=== PATIENT | female | born 1960 | race Caucasian/White ===

== ENCOUNTER 2024-11-22 10:05 | Inpatient (IN) | payer MEDICARE, OTHER ==
[~2024-11-22] VITALS: Ht 172.7 cm; Wt 59.0 kg
[2024-11-22 11:03] LABS: BASOPHILS # (AUTO) 0.1 K/UL (0.0-0.2); CALCIUM 9.8 mg/dL (8.5-10.1); CARBON DIOXIDE 30 mmol/L (21-32); CHLORIDE 103 mmol/L (98-107); CREATININE 0.7 mg/dL (0.6-1.3); EOSINOPHILS # (AUTO) 0.1 K/uL (0.0-0.7); EOSINOPHILS % (AUTO) 1.6 % (0.0-7.0); GLUCOSE 111 mg/dL (74-106); HEMATOCRIT 47.1 % (31.2-41.9); LYMPHOCYTES # (AUTO) 1.4 K/uL (0.8-4.8); LYMPHOCYTES % (AUTO) 22.5 % (20.5-51.5); MEAN CORPUSCULAR HEMOGLOBIN 33.7 uug (24.7-32.8); MEAN CORPUSCULAR HGB CONC 34 g/dL (32.3-35.6); MONOCYTES # (AUTO) 0.7 K/uL (0.1-1.30); MONOCYTES % (AUTO) 10.9 % (0.0-11.0); NEUTROPHILS # (AUTO) 3.9 K/uL (1.8-8.9); PLATELET COUNT (AUTO) 225 K/uL (179-408); POTASSIUM 3.8 mmol/L (3.5-5.1); RED BLOOD CELL COUNT(AUTO) 4.76 MIL/uL (3.63-4.92); RED CELL DISTRIBUTION WIDTH 13.5 % (12.3-17.7); SODIUM SERUM 142 mmol/L (136-145); UREA NITROGEN, BLOOD 10 mg/dL (7-18); WHITE BLOOD COUNT (AUTO) 6.1 K/uL (3.8-11.8)
[2024-11-22 11:16] LABS: ALANINE AMINOTRANSFERASE 10 U/L (14-59); ALBUMIN 3.8 g/dL (3.4-5.0); ALKALINE PHOSPHATASE 96 U/L (50-136); ASPARTATE AMINOTRANSFERASE 19 U/L (15-37); BILIRUBIN,DIRECT 0.1 mg/dL (0.0-0.2); BILIRUBIN,TOTAL 0.8 mg/dL (0.2-1.0); NT-PRO BNP 2463 pg/mL (0-125); TOTAL PROTEIN, SERUM 7.5 g/dL (6.4-8.2)
[2024-11-22 11:47] LABS: THYROID STIMULATING HORMONE 10.717 mIU/mL (0.358-3.740)
[2024-11-22] MEDS ORDERED: ASPIRIN 81 MG TAB.CHEW ONE (12:12)
[2024-11-22] MEDS: ASPIRIN 81 MG TAB.CHEW PO ONE (12:15)
[2024-11-22 12:30] LABS: BILIRUBIN,TOTAL 0.7 mg/dL (0.2-1.0)
[2024-11-22 12:31] LABS: ALBUMIN 3.8 g/dL (3.4-5.0); BILIRUBIN,DIRECT 0.1 mg/dL (0.0-0.2); TOTAL PROTEIN, SERUM 7.5 g/dL (6.4-8.2)
[2024-11-22] MEDS ORDERED: METR45GE6 TP (15:31)
[2024-11-22] MEDS ORDERED: ALBU0.63 NEB (15:31)
[2024-11-22] MEDS ORDERED: ESTR42.53 VG (15:31)
[2024-11-22 16:18] VITALS: BP 154/75; TEMP 97.5; O2SAT 97
[2024-11-22] MEDS ORDERED: ONDANSETRON 4 MG/2 ML VIAL IV PRN (16:30)
[2024-11-22] MEDS ORDERED: MAGNESIUM HYDROXIDE 30 ML LIQUID UDC PO PRN (16:30)
[2024-11-22] MEDS ORDERED: ALBUTEROL SULFATE 2.5 MG/3 ML NEBU NEB PRN (16:30)
[2024-11-22] MEDS: ENOXAPARIN SODIUM 40 MG/0.4 ML DISP.SYRIN SQ SCH (17:11)
[2024-11-22 18:05] VITALS: BP 147/75; TEMP 97.5; O2SAT 97
[2024-11-22 19:46] VITALS: BP 153/78; TEMP 97.9; O2SAT 96
[2024-11-22] MEDS: ATORVASTATIN 40 MG TABLET PO SCH (20:04)
[2024-11-22] MEDS: DOCUSATE SODIUM 250 MG CAPSULE PO SCH (20:06)
[2024-11-22] MEDS: TEMAZEPAM 15 MG CAPSULE PO PRN (21:37)
[2024-11-23] VITALS: BP 106/57; TEMP 98; O2SAT 96
[2024-11-23 05:16] VITALS: BP 116/47; TEMP 97.3; O2SAT 98
[2024-11-23] MEDS: PANTOPRAZOLE SODIUM 40 MG TABLET.DR PO SCH (06:06)
[2024-11-23 06:50] LABS: BASOPHILS # (AUTO) 0.1 K/UL (0.0-0.2); BASOPHILS % (AUTO) 1.2 % (0.0-2.0); EOSINOPHILS # (AUTO) 0.1 K/uL (0.0-0.7); EOSINOPHILS % (AUTO) 2.1 % (0.0-7.0); HEMATOCRIT 50.8 % (31.2-41.9); HEMOGLOBIN 17.5 g/dL (10.9-14.3); LYMPHOCYTES # (AUTO) 1.5 K/uL (0.8-4.8); LYMPHOCYTES % (AUTO) 24.7 % (20.5-51.5); MEAN CORPUSCULAR HEMOGLOBIN 33.9 uug (24.7-32.8); MEAN CORPUSCULAR HGB CONC 34 g/dL (32.3-35.6); MEAN CORPUSCULAR VOLUME 98.4 fL (75.5-95.3); MONOCYTES # (AUTO) 0.7 K/uL (0.1-1.30); MONOCYTES % (AUTO) 11.5 % (0.0-11.0); NEUTROPHILS # (AUTO) 3.7 K/uL (1.8-8.9); NEUTROPHILS % (AUTO) 60.5 % (38.5-71.5); PLATELET COUNT (AUTO) 251 K/uL (179-408); RED BLOOD CELL COUNT(AUTO) 5.16 MIL/uL (3.63-4.92); RED CELL DISTRIBUTION WIDTH 13.6 % (12.3-17.7); WHITE BLOOD COUNT (AUTO) 6.1 K/uL (3.8-11.8)
[2024-11-23 07:04] LABS: ALBUMIN 3.6 g/dL (3.4-5.0); CALCIUM 9.5 mg/dL (8.5-10.1); CREATININE 0.7 mg/dL (0.6-1.3); MAGNESIUM 2.4 mg/dL (1.8-2.4); PHOSPHOROUS 4.4 mg/dL (2.5-4.9); POTASSIUM 3.6 mmol/L (3.5-5.1); TOTAL PROTEIN, SERUM 7.4 g/dL (6.4-8.2)
[2024-11-23 07:09] LABS: DIFFERENTIAL COMMENT 1
[2024-11-23 07:21] VITALS: BP 156/85; TEMP 98.1; O2SAT 98
[2024-11-23] MEDS: ASPIRIN EC 81 MG TABLET.DR PO SCH (08:57)
[2024-11-23] MEDS: CYANOCOBALAMIN 1000 MCG/ML VIAL IM SCH (08:58)
[2024-11-23] MEDS: ENOXAPARIN SODIUM 60 MG/0.6 ML DISP.SYRIN SQ SCH (08:58)
[2024-11-23 11:04] VITALS: BP 138/72; TEMP 97.6; O2SAT 98
[2024-11-23 15:29] VITALS: BP 119/70; TEMP 98; O2SAT 96
[2024-11-23] MEDS: ACETAMINOPHEN 325 MG TABLET PO PRN (16:43)
[2024-11-23] MEDS ORDERED: ACET325T53 PO (17:21)
[2024-11-23] MEDS ORDERED: ATOR40TA PO (17:21)
[2024-11-23] MEDS ORDERED: ALBU2.5V7 NEB (17:21)
[2024-11-23] MEDS ORDERED: DOCU-141 PO (17:21)
[2024-11-23] MEDS ORDERED: ASPI-618 PO (17:21)
[2024-11-23] MEDS ORDERED: PANT40TA49 PO (17:21)
[2024-11-23] MEDS ORDERED: CYAN10006 IM (17:21)
[2024-11-23] MEDS ORDERED: ENOX60DI SQ (17:21)
[2024-11-23] MEDS ORDERED: TEMA15CA PO (17:21)
[2024-11-23 19:00] VITALS: BP 135/77; TEMP 98.2; O2SAT 95
[2024-11-23] MEDS: DOCUSATE SODIUM 100 MG CAPSULE PO SCH (20:29)
== END 2024-11-23 21:30 | disposition short-term general hospital (02) | DRG 280 ==
LOC: ER 10:05 → TELE3 15:01
PROVIDERS: ADMIT Internal Medicine; ATTEND Internal Medicine
DX: I25.10 Atherosclerotic heart disease of native coronary artery without angina pectoris (principal); I26.99 Other pulmonary embolism without acute cor pulmonale; I21.A1 Myocardial infarction type 2; I51.81 Takotsubo syndrome; I50.9 Heart failure, unspecified; L71.9 Rosacea, unspecified; D75.89 Other specified diseases of blood and blood-forming organs; E03.9 Hypothyroidism, unspecified; Z82.49 Family history of ischemic heart disease and other diseases of the circulatory system; Z82.3 Family history of stroke; Z80.1 Family history of malignant neoplasm of trachea, bronchus and lung; Z90.711 Acquired absence of uterus with remaining cervical stump
CPT/HCPCS: 36415; 71045; 83735; 84100; 84443; 84484; 85025; 93307; A4606; A4663; G0378; J1650; J3420